=== PATIENT | female | born 1980 | race Two or more races ===

== ENCOUNTER 2018-03-29 10:33 | Emergency (ER) | payer SELFPAY ==
[2018-03-29 10:56] LABS: URINE HCG POC HCG NEGATIVE (Negative)
[2018-03-29 11:24] LABS: ADD MAN DIFF? NO
[2018-03-29 11:36] LABS: BARBITURATES NEG (NEG); BENZODIAZEPINES NEG (NEG); CANNABINOIDS NEG (NEG); COCAINE NEG (NEG); METHADONE NEG (NEG); OPIATES NEG (NEG); PHENCYCLIDINE NEG (NEG)
[2018-03-29 11:37] LABS: AMPHETAMINE/METHAMPHETAMINE NEG (NEG)
[2018-03-29 11:38] LABS: ETHANOL, URINE NEG (NEG)
[2018-03-29 11:39] LABS: ANION GAP 10 (6-14); BILIRUBIN,URINE NEGATIVE (NEG); BLOOD UREA NITROGEN 16 mg/dL (7-20); BUN/CREATININE RATIO 23 (6-20); CALCIUM 8.9 mg/dL (8.5-10.1); CARBON DIOXIDE 26 mmol/L (21-32); CHLORIDE 104 mmol/L (98-107); CLARITY,URINE CLEAR; COLOR,URINE YELLOW; CREATININE 0.7 mg/dL (0.6-1.0); GFR 93.6; GLUCOSE 135 mg/dL (70-99); GLUCOSE,URINE NEGATIVE (NEG); NITRITE,URINE NEGATIVE (NEG); POTASSIUM 4.5 mmol/L (3.5-5.1); PROTEIN,URINE 30 mg/dL (NEG-TRACE); SODIUM 140 mmol/L (136-145); UROBILINOGEN,URINE 0.2 mg/dL (0.2 mg/dL)
[2018-03-29] MEDS: ONDANSETRON PF 4 MG/2 ML VIAL. IV (11:45)
[2018-03-29 11:47] LABS: ALBUMIN 3.7 g/dL (3.4-5.0); ALK PHOS 91 U/L (46-116); ALT (SGPT) 31 U/L (14-59); AST (SGOT) 25 U/L (15-37); TOTAL BILIRUBIN 0.3 mg/dL (0.2-1.0); TOTAL PROTEIN 7.5 g/dL (6.4-8.2)
[2018-03-29 11:51] LABS: BASO % 0 % (0-3); EOS # 0.1 x10^3/uL (0.0-0.7); EOS % 1 % (0-3); HEMATOCRIT 41.7 % (36.0-47.0); HEMOGLOBIN 14.4 g/dL (12.0-15.5); LYMPH # 1.8 x10^3/uL (1.0-4.8); LYMPH % 26 % (24-48); MEAN CORPUSCULAR HEMOGLOBIN 31 pg (25-35); MEAN CORPUSCULAR HGB CONC 35 g/dL (31-37); MEAN CORPUSCULAR VOLUME 91 fL (79-100); MONO # 0.4 x10^3/uL (0.0-1.1); MONO % 6 % (0-9); NEUT # 4.8 x10^3uL (1.8-7.7); NEUT % 67 % (31-73); PLATELET COUNT 332 x10^3/uL (140-400); RED CELL DISTRIBUTION WIDTH 13.2 % (11.5-14.5)
[2018-03-29 12:08] LABS: BACTERIA,URINE FEW /HPF (0-FEW); RBC,URINE 0 /HPF (0-2); SQUAMOUS EPITHELIAL CELL,UR OCC /LPF; WBC,URINE OCC /HPF (0-4)
== END 2018-03-29 13:52 | disposition home or self-care (01) ==
LOC: ER 13:52
DX: G40.409 Other generalized epilepsy and epileptic syndromes, not intractable, without status epilepticus (principal)
CPT/HCPCS: 36415; 70450; 80053; 80307; 81001; 81025; 85025; 93005; 96374; 99285-25; J2405